=== PATIENT | female | born 1950 | race Caucasian/White ===

== ENCOUNTER 2018-04-21 07:25 | Day surgery (SDC) | payer OTHER ==
[~2018-04-21] VITALS: Ht 165.1 cm; Wt 80.5 kg
[~2018-04-21 07:25] MED LIST: ADVAIR 250/501 DISK IH; ASCORBIC ACID500 M3 PO; BIOTIN 5000MCG PO; CALCIUM 600 +1 EAC4 PO; DIOVAN80 MG PO; L-LYSINE500 M1 PO; PROAIR RESPICL90 MCG IH; TURMERIC 500 M1 EACH PO; VITAMIN A8000 UNIT PO; VITAMIN B-2100 MG PO; VITAMIN B-6100 MG PO; VITAMIN E400 UNIT PO
[2018-04-21 07:57] VITALS: BP 123/70
[2018-04-21 12:16] VITALS: BP 132/75
[2018-04-21 16:08] LABS: HEMATOCRIT 34.4 % (36.0-46.0); HEMOGLOBIN 11.3 G/DL (11.9-15.5); MCH 31.8 PG (29.0-34.0); MCHC 32.8 G/DL (30.0-36.0); MCV 96.9 FL (83-99); PLATELET COUNT 159 K/uL (156-360); RBC DIS.WIDTH-CV 13.9 % (11.8-14.6); RBC DIS.WIDTH-SD 49.9 % (39-53); RED BLOOD COUNT 3.55 M/uL (3.80-5.20); WHITE BLOOD COUNT 5.9 K/uL (4.1-10.2)
[2018-04-21 16:13] VITALS: BP 140/74
[2018-04-21 16:32] LABS: CHLORIDE 103 MEQ/L (99-109); GFR ESTIMATE (CALCULATED) 59 mL/min/; GLUCOSE 126 mg/dL (70-99); POTASSIUM 3.7 MEQ/L (3.7-5.4); SODIUM 136 MEQ/L (136-147); UREA NITROGEN (BUN) 20 mg/dL (9-23)
[2018-04-21 19:30] VITALS: BP 127/60
[2018-04-21 23:34] VITALS: BP 119/61
[2018-04-22 03:12] VITALS: BP 107/57
[2018-04-22 07:02] LABS: HEMATOCRIT 32.7 % (36.0-46.0); HEMOGLOBIN 10.7 G/DL (11.9-15.5); MCH 31.6 PG (29.0-34.0); MCHC 32.7 G/DL (30.0-36.0); MCV 96.5 FL (83-99); PLATELET COUNT 177 K/uL (156-360); RBC DIS.WIDTH-CV 14.1 % (11.8-14.6); RBC DIS.WIDTH-SD 50.1 % (39-53); RED BLOOD COUNT 3.39 M/uL (3.80-5.20); WHITE BLOOD COUNT 7.4 K/uL (4.1-10.2)
[2018-04-22 07:19] VITALS: BP 120/60
[2018-04-22 07:29] LABS: CHLORIDE 104 MEQ/L (99-109); CREATININE 1.3 MG/DL (0.6-1.3); GFR ESTIMATE (CALCULATED) 44 mL/min/; GLUCOSE 102 mg/dL (70-99); POTASSIUM 4.3 MEQ/L (3.7-5.4); SODIUM 139 MEQ/L (136-147); UREA NITROGEN (BUN) 24 mg/dL (9-23)
== END 2018-04-22 11:13 | disposition home or self-care (01) ==
LOC: SDC 07:25 → ENRESERV 10:22 → 2EAST 10:30 → 2SOUTH 10:48 → ENRESERV 10:50 → SDC 11:18 → 2EAST 11:51 → SDC 12:55 → 2EAST 04-22 11:13
PROVIDERS: Obstetrics & Gynecology Gynecologic Oncology
PROC: 0UT97ZZ Resection of Uterus, Via Natural or Artificial Opening (ICD-10-PCS; principal; 2018-04-21)
PROC: 8E0UXY7 Examination of Female Reproductive System (ICD-10-PCS; principal; 2018-04-21)
DX: D06.9 Carcinoma in situ of cervix, unspecified (principal); D25.9 Leiomyoma of uterus, unspecified; N80.0 Endometriosis of uterus; J45.909 Unspecified asthma, uncomplicated; I10 Essential (primary) hypertension; J84.10 Pulmonary fibrosis, unspecified; I71.2 Thoracic aortic aneurysm, without rupture; Z82.49 Family history of ischemic heart disease and other diseases of the circulatory system; Z82.5 Family history of asthma and other chronic lower respiratory diseases; Z80.0 Family history of malignant neoplasm of digestive organs
CPT/HCPCS: 80048; 85027; 88307; 94640; 94640 76; G0378; J0131; J0171; J0330; J0690; J1100; J1170; J1885; J2405; J2710; J3010; J7643